=== PATIENT | male | born 1970 | race Asian ===

== ENCOUNTER 2019-01-21 11:26 | Emergency (ER) | payer BC ==
[~2019-01-21] VITALS: Ht 165.1 cm; Wt 76.0 kg
--- NOTE | 2019-01-21 11:54 | NUR ---
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
--- NOTE | 2019-01-21 12:09 | NUR ---
PT C/O HI BP STARTING YESTERDAY, THEN THIS AM FELT LIGHT HEADED. HX HTN, HAS BEEN TAKING MEDS PRESCRIBED. CONNECTED TO MONITORING. CALL LIGHT IN REACH. MD AT BEDSIDE. AWAITING ORDERS AT THIS TIME. Addendum: 01/21/19 at 1220 by [email or web address] PT IS WEARING A HAULTER MONITOR FOR HEART ARRYTHMIA. HE'S BEEN WEARING IT FOR THE PAST FOUR DAYS.
[2019-01-21 13:00] LABS: BASOPHILS # (AUTO) 0.06 x10^3/uL (0-0.1); BASOPHILS % (AUTO) 1 % (0-1); EOSINOPHILS # (AUTO) 0.12 x10^3/uL (0-0.4); EOSINOPHILS % (AUTO) 2 % (1-7); LYMPHOCYTES # (AUTO) 2.18 x10^3/uL (1-3.4); LYMPHOCYTES % (AUTO) 31 % (22-44); MD NO; MEAN CORPUSCULAR HEMOGLOBIN 29.9 pg (27.5-34.5); MEAN CORPUSCULAR HGB CONC 33.2 g/dL (33.2-36.2); MEAN CORPUSCULAR VOLUME 90.1 fL (81-97); MEAN PLATELET VOLUME 6.4 fL (7.4-10.4); MONOCYTES # (AUTO) 0.41 x10^3/uL (0.2-0.8); MONOCYTES % (AUTO) 6 % (2-9); NEUTROPHILS # (AUTO) 4.25 x10^3/uL (1.8-6.8); NEUTROPHILS % (AUTO) 61 % (42-75); PLATELET COUNT 291 x10^3/uL (130-400); RED BLOOD COUNT 5.13 x10^6/uL (4.38-5.82)
[2019-01-21] MEDS ORDERED: ASPIRIN 81 MG TABLET CHEW PO ONE (13:00)
[2019-01-21] MEDS ORDERED: ASPIRIN 81 MG TABLET CHEW ONE (13:09)
[2019-01-21 13:11] LABS: ANION GAP 3 mmol/L (5-15); CHLORIDE 106 mmol/L (98-107); CREATININE 1.14 mg/dL (0.7-1.3)
[2019-01-21] MEDS ORDERED: METOPROLOL TARTRATE 50 MG TABLET ONE (13:14)
[2019-01-21 13:15] LABS: TROPONIN I < 0.015 ng/mL (0.000-0.045)
--- NOTE | 2019-01-21 13:16 | NUR ---
MEDS ADMIN PER APR. PT AMBULATE TO RESTROOM WITH STEADY GAIT. ANGY.
--- NOTE | 2019-01-21 13:29 | NUR ---
ALL RESULTS ARE BACK AT THIS TIME. CHART UP FOR RECHECK.
[2019-01-21] MEDS ORDERED: METOPROLOL TARTRATE 50 MG TABLET PO ONE (13:30)
[2019-01-21 13:32] VITALS: BP 178/97
--- NOTE | 2019-01-21 13:33 | NUR ---
MD AT BEDSIDE TO UPDATE ON POC.
--- NOTE | 2019-01-21 13:49 | NUR ---
REPEAT EKG COMPLETE. MD AT BEDSIDE TO UPDATE PT ON POC.
== END 2019-01-21 14:03 | disposition home or self-care (01) ==
LOC: ED 13:58
DX: I10 Essential (primary) hypertension (principal)
CPT/HCPCS: 36415; 71045; 80048; 84484; 85025; 93005; 99284